=== PATIENT | female | born 1980 | race Two or more races ===

== ENCOUNTER 2018-06-18 20:10 | Inpatient (IN) | payer BC ==
[2018-06-18] MEDS ORDERED: ONDANSETRON 4 MG INJ IV (22:30)
[2018-06-18] MEDS ORDERED: ACETAMINOPHEN 325 MG TAB PO (22:30)
[2018-06-18] MEDS: DEXTROSE 5%-0.9% NACL 1,000 ML IV (23:06)
[2018-06-18] MEDS: CEFTRIAXONE 1 GM/50 ML (PMX) 50 ML IVPB (23:06)
[2018-06-19 05:14] LABS: ADD MAN DIFF? NO
[2018-06-19 05:16] LABS: WHITE BLOOD COUNT 8.1 10^3/ul (4.8-10.8)
[2018-06-19 05:16] LABS: BASOPHIL # 0.1 10^3/ul (0.0-0.1); BASOPHILS % 0.6 % (0.0-2.0); EOSINOPHILS # 0.3 10^3/ul (0.0-0.5); EOSINOPHILS % 3.2 % (0.0-7.0); HEMATOCRIT 33.4 % (37.0-47.0); HEMOGLOBIN 11.2 g/dl (12.0-16.0); LYMPHOCYTES # 2.7 10^3/ul (0.8-2.9); LYMPHOCYTES % 33.3 % (15.0-51.0); MEAN CORPUSCULAR HEMOGLOBIN 31.2 pg (29.0-33.0); MEAN CORPUSCULAR HGB CONC 33.5 g/dl (32.0-37.0); MONOCYTE # 0.6 10^3/ul (0.3-0.9); MONOCYTES % 7.8 % (0.0-11.0); NEUTROPHIL # 4.4 10^3/ul (1.6-7.5); NEUTROPHILS % 54.7 % (39.0-77.0); PLATELET COUNT 272 10^3/UL (140-415); RED BLOOD COUNT 3.59 10^6/ul (4.20-5.40); RED CELL DISTRIBUTION WIDTH 11.8 % (11.5-14.5)
[2018-06-19 05:36] LABS: ALANINE AMINOTRANSFERASE 118 IU/L (13-69); ALBUMIN 3.6 g/dl (3.3-4.9); ALBUMIN/GLOBULIN RATIO 0.97; ALKALINE PHOSPHATASE 79 IU/L (42-121); ANION GAP 9 (5-13); ASPARTATE AMINO TRANSFERASE 31 IU/L (15-46); BILIRUBIN,INDIRECT 0.3 mg/dl (0-1.1); BILIRUBIN,TOTAL 0.3 mg/dl (0.2-1.3); BLOOD UREA NITROGEN 4 mg/dl (7-20); CALCIUM 8.8 mg/dl (8.4-10.2); CARBON DIOXIDE 33 mmol/L (21-31); CHLORIDE 102 mmol/L (97-110); CREATININE 0.65 mg/dl (0.44-1.00); Estimated GFR > 60 mL/min (>60); GLUCOSE 119 mg/dl (70-220); LIPASE 153 U/L (23-300); POTASSIUM 3.3 mmol/L (3.5-5.1); SODIUM 144 mmol/L (135-144); TOTAL PROTEIN 7.3 g/dl (6.1-8.1)
[2018-06-19] MEDS: PANTOPRAZOLE 40 MG INJ IV (05:52)
[2018-06-19 06:22] LABS: AMYLASE 72 U/L (11-123)
[2018-06-19] MEDS: DEXTROSE 5%-0.9% NACL 1,000 ML IV ×2 (09:10→19:06)
[2018-06-19] MEDS: POTASSIUM CHLORIDE (SR) 20 MEQ TAB PO (20:06)
[2018-06-19] MEDS: CEFTRIAXONE 1 GM/50 ML (PMX) 50 ML IVPB (22:26)
[2018-06-20] MEDS: morphine 2 MG INJ IV ×4 (01:16→22:04)
[2018-06-20] MEDS ORDERED: DIPHENOXYLATE/ATROPINE TAB PO (01:30)
[2018-06-20] MEDS: DEXTROSE 5%-0.9% NACL 1,000 ML IV ×3 (04:34→22:41)
[2018-06-20] MEDS: PANTOPRAZOLE 40 MG INJ IV (05:57)
[2018-06-20 06:11] LABS: ADD MAN DIFF? NO
[2018-06-20 06:14] LABS: WHITE BLOOD COUNT 8.8 10^3/ul (4.8-10.8)
[2018-06-20 06:14] LABS: BASOPHILS % 0.3 % (0.0-2.0); EOSINOPHILS # 0.1 10^3/ul (0.0-0.5); HEMATOCRIT 31.1 % (37.0-47.0); HEMOGLOBIN 10.6 g/dl (12.0-16.0); LYMPHOCYTES # 1.4 10^3/ul (0.8-2.9); LYMPHOCYTES % 16.1 % (15.0-51.0); MEAN CORPUSCULAR HEMOGLOBIN 31.6 pg (29.0-33.0); MEAN CORPUSCULAR HGB CONC 34.1 g/dl (32.0-37.0); MEAN CORPUSCULAR VOLUME 92.8 fl (82.0-101.0); MEAN PLATELET VOLUME 9.8 fl (7.4-10.4); MONOCYTE # 0.6 10^3/ul (0.3-0.9); MONOCYTES % 6.4 % (0.0-11.0); NEUTROPHIL # 6.7 10^3/ul (1.6-7.5); NEUTROPHILS % 75.9 % (39.0-77.0); PLATELET COUNT 267 10^3/UL (140-415); RED BLOOD COUNT 3.35 10^6/ul (4.20-5.40); RED CELL DISTRIBUTION WIDTH 11.7 % (11.5-14.5)
[2018-06-20 06:52] LABS: INR 1.02; PARTIAL THROMBOPLASTIN TIME 34.7 Sec (23.0-35.0); PROTIME 13.5 Sec (11.9-14.9); PT RATIO 1.1
[2018-06-20] MEDS ORDERED: LIDOCAINE 1% (MPF) 30 ML INJ (07:00)
[2018-06-20] MEDS ORDERED: BUPIVACAINE 0.5%/EPI (SDV) 30 ML INJ (07:00)
[2018-06-20] MEDS ORDERED: IOHEXOL 300MG/ML 30 ML BTL (07:01)
[2018-06-20 07:06] LABS: ALANINE AMINOTRANSFERASE 90 IU/L (13-69); ALBUMIN 3.4 g/dl (3.3-4.9); ALKALINE PHOSPHATASE 82 IU/L (42-121); ANION GAP 9 (5-13); ASPARTATE AMINO TRANSFERASE 29 IU/L (15-46); BILIRUBIN,INDIRECT 0.3 mg/dl (0-1.1); BILIRUBIN,TOTAL 0.3 mg/dl (0.2-1.3); BLOOD UREA NITROGEN 3 mg/dl (7-20); CALCIUM 8.8 mg/dl (8.4-10.2); CARBON DIOXIDE 28 mmol/L (21-31); CHLORIDE 107 mmol/L (97-110); CREATININE 0.63 mg/dl (0.44-1.00); Estimated GFR > 60 mL/min (>60); GLUCOSE 117 mg/dl (70-220); POTASSIUM 3.7 mmol/L (3.5-5.1); SODIUM 144 mmol/L (135-144); TOTAL PROTEIN 6.8 g/dl (6.1-8.1)
[2018-06-20] MEDS ORDERED: NEOSTIGMINE 3 MG/3 ML SYRINGE (07:36)
[2018-06-20] MEDS ORDERED: GLYCOPYRROLATE 0.4 MG INJ (07:36)
[2018-06-20] MEDS ORDERED: ROCURONIUM 50 MG INJ (07:36)
[2018-06-20] MEDS ORDERED: LIDOCAINE 2% (SDV) 5 ML INJ (07:36)
[2018-06-20] MEDS ORDERED: MEPERIDINE 100 MG INJ (07:36)
[2018-06-20] MEDS ORDERED: PROPOFOL 20 ML (07:36)
[2018-06-20] MEDS ORDERED: SUCCINYLCHOLINE CHLORIDE 100 MG/5 ML SYG IV (07:36)
[2018-06-20] MEDS: LIDOCAINE 1% (MPF) 30 ML INJ INJ (07:50)
[2018-06-20] MEDS: BUPIVACAINE 0.5%/EPI (SDV) 30 ML INJ INJ (07:50)
[2018-06-20] MEDS ORDERED: FENTAnyl 50 MCG/ML VIAL IV ×3 (08:00)
[2018-06-20] MEDS ORDERED: HYDROmorphONE 1 MG/5 ML IV SYRINGE IV ×3 (08:00)
[2018-06-20] MEDS ORDERED: MIDAZOLAM 1 MG/ML 2 ML INJ IV (08:00)
[2018-06-20] MEDS ORDERED: EPHEDrine SULFATE 50 MG/5 ML SYG IV (08:00)
[2018-06-20] MEDS ORDERED: DIPHENHYDRAMINE 50 MG INJ IV (08:00)
[2018-06-20] MEDS ORDERED: OXYCODONE/ACETAMINOPHEN (5/325) TAB PO ×2 (08:00)
[2018-06-20] MEDS ORDERED: METOCLOPRAMIDE 10 MG INJ IV (08:00)
[2018-06-20] MEDS ORDERED: LABETALOL HCL 20MG INJ IV (08:00)
[2018-06-20] MEDS ORDERED: ONDANSETRON 4 MG INJ IV (08:00)
[2018-06-20] MEDS ORDERED: MEPERIDINE 25 MG INJ IV (08:00)
[2018-06-20] MEDS ORDERED: hydrALAzine 20 MG INJ IV (08:00)
[2018-06-20] MEDS ORDERED: METOCLOPRAMIDE 10 MG INJ (08:06)
[2018-06-20] MEDS ORDERED: ONDANSETRON 4 MG INJ (08:06)
[2018-06-20] MEDS ORDERED: metroNIDAZOLE 500 MG/NS (PMX) 100 ML IVPB (09:32)
[2018-06-20] MEDS ORDERED: CEFAZOLIN 1 GM INJ (09:32)
[2018-06-20] MEDS ORDERED: ACETAMINOPHEN 325 MG TAB PO (10:00)
[2018-06-20] MEDS ORDERED: HYDROCODONE/APAP (5/325) TAB PO (10:00)
[2018-06-20] MEDS ORDERED: morphine 2 MG INJ IV (10:00)
[2018-06-20] MEDS: CEFTRIAXONE 1 GM/50 ML (PMX) 50 ML IVPB (22:41)
[2018-06-21] MEDS: morphine 2 MG INJ IV ×2 (03:09→07:32)
[2018-06-21] MEDS: PANTOPRAZOLE (EC) 40 MG TAB PO (06:43)
[2018-06-21] MEDS: DEXTROSE 5%-0.9% NACL 1,000 ML IV (09:57)
[2018-06-21] MEDS: INFLUENZA VIRUS VACCINE 0.5 ML (DISPENSING) IM* (09:57)
[2018-06-21] MEDS: IBUPROFEN 600 MG TAB PO (11:34)
[2018-06-21] MEDS: HYDROCODONE/APAP (5/325) TAB PO (14:00)
== END 2018-06-21 15:27 | disposition home health service (06) | DRG 419 ==
LOC: MS1 06-20 08:20
PROC: 0FT44ZZ Resection of Gallbladder, Percutaneous Endoscopic Approach (ICD-10-PCS; principal; 2018-06-20 07:30)
PROC: 0FB04ZX Excision of Liver, Percutaneous Endoscopic Approach, Diagnostic (ICD-10-PCS; 2018-06-20 07:30)
DX: K85.10 Biliary acute pancreatitis without necrosis or infection (principal); K80.20 Calculus of gallbladder without cholecystitis without obstruction; E87.6 Hypokalemia; E66.9 Obesity, unspecified; Z68.32 Body mass index [BMI] 32.0-32.9, adult
CPT/HCPCS: 74300; 80053; 82150; 83690; 84703; 85025; 85610; 85730; 88304; 88307; 88313; 90686